=== PATIENT | male | born 1965 | race Caucasian/White ===

== ENCOUNTER → 2021-07-31 | Day surgery (SDC) | payer OTHER ==
[~2021-07-31] VITALS: Ht 190.5 cm; Wt 95.5 kg
[~2021-07-31] MED LIST: ASPIRIN EC81 MG PO; CYMBALTA 30MG C30 MG PO; CYMBALTA60 MG PO; DULOXETINE HCL60 MG PO; GLIMEPIRIDE4 MG PO; JANUVIA PO; LIPITOR20 MG PO; LYRICA PO; LYRICA150 MG PO; LYRICA300 MG PO; MELOXICAM15 MG PO; METFORMIN PO; PLAVIX75 MG PO; PREGABALIN150 MG PO; PREGABALIN300 MG PO; PROTONIX 40MG T40 MG PO; TRAMADOL HCL50 MG PO; TRULICITY SC; ULTRAM50 MG PO
== END | disposition home or self-care (01) ==
LOC: FAS 12:28
DX: K29.50 Unspecified chronic gastritis without bleeding (principal); K22.89 Other specified disease of esophagus; I73.9 Peripheral vascular disease, unspecified; M19.90 Unspecified osteoarthritis, unspecified site; E11.9 Type 2 diabetes mellitus without complications; E78.00 Pure hypercholesterolemia, unspecified; E78.5 Hyperlipidemia, unspecified; I10 Essential (primary) hypertension; F32.A Depression, unspecified; F17.200 Nicotine dependence, unspecified, uncomplicated; Z79.4 Long term (current) use of insulin; Z79.82 Long term (current) use of aspirin; Z79.891 Long term (current) use of opiate analgesic; Z79.899 Other long term (current) drug therapy; Z88.5 Allergy status to narcotic agent; Z80.0 Family history of malignant neoplasm of digestive organs; Z72.89 Other problems related to lifestyle

== ENCOUNTER 2021-09-30 06:20 | Emergency (ER) | payer OTHER ==
[~2021-09-30] VITALS: Ht 190.5 cm; Wt 95.3 kg
[2021-09-30 08:31] LABS: BASOPHIL 0.6 % (0-2); EOSINOPHIL 1.7 % (0-5); HCT 45.3 % (42.0-52.0); HGB 15.6 g/dl (13.2-18.0); LYMPHOCYTE 17.7 % (15-48); MCHC 34.4 g/dL (32.0-36.0); MCV 89.9 fL (78.0-100.0); MONOCYTE 4.8 % (0-12); MPV 11.7 fL (6.0-9.5); NEUTROPHIL 74.9 % (41-80); NRBC 0; PLT 201 K/uL (150-400); RBC 5.04 M/uL (4.70-6.00); RDW 12.1 % (11.5-14.0)
[2021-09-30 09:15] LABS: ALBUMIN 3.6 g/dL (3.4-5.0); BILIRUBIN - TOTAL 0.9 mg/dL (0.2-1.0); BUN/CREAT RATIO (CALC) 16.2 RATIO; C-REACTIVE PROTEIN 2.5 mg/dL (<=0.90); CREATININE 0.68 mg/dL (0.67-1.17); MAGNESIUM 1.9 mg/dL (1.8-2.4); POTASSIUM 4.4 mmol/L (3.5-5.1); TOTAL PROTEIN 6.6 g/dL (6.4-8.2)
== END 2021-09-30 11:34 | disposition left against medical advice (07) ==
LOC: FER 06:20
PROVIDERS: Emergency Medicine
DX: E11.42 Type 2 diabetes mellitus with diabetic polyneuropathy (principal); E11.65 Type 2 diabetes mellitus with hyperglycemia; M86.9 Osteomyelitis, unspecified; F17.210 Nicotine dependence, cigarettes, uncomplicated; Z79.84 Long term (current) use of oral hypoglycemic drugs; Z79.4 Long term (current) use of insulin; Z53.29 Procedure and treatment not carried out because of patient's decision for other reasons; Z20.822 Contact with and (suspected) exposure to COVID-19
CPT/HCPCS: 36415; 80053; 83605; 83735; 84145; 84443; 85025; 86140; 87040; J2543; J3370; J7030; J7050; U0002

== ENCOUNTER 2021-10-05 13:07 | Inpatient (IN) | payer OTHER ==
[~2021-10-05] VITALS: Ht 191 cm; Wt 92.0 kg
[2021-10-06 06:29] LABS: BASOPHIL 0.7 % (0-2); EOSINOPHIL 2.7 % (0-5); HCT 39.9 % (42.0-52.0); HGB 13.8 g/dl (13.2-18.0); LYMPHOCYTE 36.1 % (15-48); MCH 30.7 pg (25.0-31.0); MCHC 34.6 g/dL (32.0-36.0); MCV 88.9 fL (78.0-100.0); MONOCYTE 6.4 % (0-12); MPV 11.1 fL (6.0-9.5); NEUTROPHIL 53.8 % (41-80); NRBC 0; PLT 193 K/uL (150-400); RBC 4.49 M/uL (4.70-6.00); WBC 7.3 K/uL (4.0-10.5)
[2021-10-06 06:45] LABS: BUN/CREAT RATIO (CALC) 17.2 RATIO; C-REACTIVE PROTEIN 2.7 mg/dL (<=0.90); CREATININE 0.64 mg/dL (0.67-1.17); POTASSIUM 3.9 mmol/L (3.5-5.1)
[2021-10-06] MEDS ORDERED: LEVAQUIN750 MG PO (16:42)
[2021-10-06] MEDS ORDERED: NORCO 5-325 TA1 EACH PO (16:42)
== END 2021-10-06 18:02 | disposition home or self-care (01) | DRG 617 ==
LOC: FMS 13:07
PROVIDERS: Student in an Organized Health Care Education/Training Program; ADMIT Allergy & Immunology Allergy
PROC: 0Y6P0Z3 Detachment at Right 1st Toe, Low, Open Approach (ICD-10-PCS; principal; 2021-10-06 13:15)
DX: E11.69 Type 2 diabetes mellitus with other specified complication (principal); M86.8X7 Other osteomyelitis, ankle and foot; E11.621 Type 2 diabetes mellitus with foot ulcer; L97.519 Non-pressure chronic ulcer of other part of right foot with unspecified severity; E11.40 Type 2 diabetes mellitus with diabetic neuropathy, unspecified; E11.51 Type 2 diabetes mellitus with diabetic peripheral angiopathy without gangrene; E11.65 Type 2 diabetes mellitus with hyperglycemia; F17.210 Nicotine dependence, cigarettes, uncomplicated; E78.5 Hyperlipidemia, unspecified; K21.9 Gastro-esophageal reflux disease without esophagitis; G25.81 Restless legs syndrome; I10 Essential (primary) hypertension; Z90.49 Acquired absence of other specified parts of digestive tract; Z98.890 Other specified postprocedural states; Z83.3 Family history of diabetes mellitus; Z80.3 Family history of malignant neoplasm of breast; Z80.0 Family history of malignant neoplasm of digestive organs; Z79.82 Long term (current) use of aspirin; Z79.899 Other long term (current) drug therapy; Z79.4 Long term (current) use of insulin; Z88.5 Allergy status to narcotic agent
CPT/HCPCS: 36415; 73720; 80048; 83036; 85025; 86140; 87070; 87075; 87077; 87186; 87205; J1335; J1815; J1885; J2250; J2370; J2405; J2704; J3010; J7120

== ENCOUNTER → 2021-10-18 | Day surgery (SDC) | payer OTHER ==
[~2021-10-18] VITALS: Ht 190.5 cm; Wt 91.8 kg
[~2021-10-18] MED LIST changes: +LEVAQUIN750 MG PO; +LEVEMIR FL100 UNIT/1 SC; +METFORMIN HCL500 M1 PO; +NORCO 5-325 TA1 EACH PO
[2021-10-18 08:13] LABS: BUN/CREAT RATIO (CALC) 15.9 RATIO; CREATININE 0.69 mg/dL (0.67-1.17)
== END | disposition home or self-care (01) ==
LOC: FAS 07:00
PROVIDERS: Anesthesiology
DX: S98.111A Complete traumatic amputation of right great toe, initial encounter (principal); M86.9 Osteomyelitis, unspecified; L08.9 Local infection of the skin and subcutaneous tissue, unspecified; E11.69 Type 2 diabetes mellitus with other specified complication; Z88.5 Allergy status to narcotic agent; F17.200 Nicotine dependence, unspecified, uncomplicated; Z79.82 Long term (current) use of aspirin; Z79.4 Long term (current) use of insulin; Z79.899 Other long term (current) drug therapy; X58.XXXA Exposure to other specified factors, initial encounter
CPT/HCPCS: 36415; 80048; 82962; 87070; 87075; 87205; J2250; J2405; J2704; J3010; J3370; J7050; J7120